=== PATIENT | female | born 1990 | race Caucasian/White ===

== ENCOUNTER 2016-09-13 11:53 | Emergency (ER) | payer OTHER ==
[~2016-09-13] VITALS: Ht 160 cm; Wt 63.5 kg
[2016-09-13] MEDS ORDERED: IRON TABLETS325 MG PO (12:12)
[2016-09-13] MEDS ORDERED: ESCITALOPRAM20 MG NG (12:13)
[2016-09-13] MEDS ORDERED: OMEPRAZOLE20 MG PO (12:53)
--- NOTE | 2016-09-13 12:55 | [facility]gent Treatment Center Report ---
History of Present Issue Date/Time Seen by Provider 09/13/16 1230 Visit Reason Pt arrived:Walked Presenting Problem:PT STATES HAS BEEN HAVING PAIN IN EPIGASTRIC AREA WHEN SWALLOWING X2 DAYS DENIES PAIN AT THIS TIME. DENIES DIFFICULTY SWALLOWING OR VOMITTING JUST PAIN. Location if Accident: Onset of symptoms date/time:09/11/16/ or onset unknown for:MEDICAL HX UNKNOWN Have you (or family members/close friends) recently traveled outside the [facility]? N If Yes, where/when: Have you had exposure to infectious disease within the past month? TB? Other? Specify: c/o throat/chest pain and feeling like everything is getting stuck mid chest. Started Saturday, 2 days ago. nearly constant but fluctuates. 3/10 at rest but 7/ 10 after eating or drinking. Described as burning, "like being on fire". Denies fever. No nausea, abdominal pain, vomiting. "Everything goes down". No improvement despite cough drops, gargling warm salt water, drinking warm fluids. Worse after eating, drinking and when laying down at night. Source patient Exam Limitations no limitations ALLERGIES Coded Allergies: sulfamethoxazole (From BACTRIM) (Intermediate, 09/13/16) trimethoprim (From BACTRIM) (Intermediate, 09/13/16) Home Medications Reported Medications Ferrous Sulfate (Iron Tablet) 325 MG PO DAILY Escitalopram Oxalate 20 MG NG DAILY #30 History Medical History General CAD? No Angina: No PA: No Hypertension? No CHF? No DVT? No PE? No COPD? No Asthma? No Anemia? No GERD? No (denies every having acid reflu) Gastric ulcers? No GI Bleed? No Hernia? No Thyroid Problems? No Hypothyroidism? No CVA? No Seizures? No Diabetes? No Renal Insuffiency? No UTI? No Stones? No BPH? No GB Disease: No Nephritic Syndrome? No Asplenia? No Hepatitis? No Sickle Cell Disease? No Arthritis? No Migraines? Yes Cataracts? No Glaucoma? No MRSA? No HIV? No Depression? 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 Respiratory denies cough, denies shortness of breath Cardiovascular denies chest pain, denies palpitations Gastrointestinal see HPI Musculoskeletal denies joint pain, denies muscle pain Physical Exam Vital Signs Vital Signs Date Time Temp Pulse Resp B/P Pulse O2 O2 Flow FiO2 Ox Delivery Rate 09/13 1259 97.8 73 18 120/59 99 09/13 1211 97.8 73 18 120/59 99 09/13 1155 97.8 73 18 120/59 99 General Appearance normal appearance, no apparent distress Ear, Nose, Throat normal ENT inspection Neck non-tender, supple, full range of motion, no thyromegaly Respiratory Status No: respiratory distress, non tender chest. Lung Sounds anterior: normal breath sounds. posterior: normal breath sounds. bilateral: normal breath sounds. Cardiovascular regular rate/rhythm, no murmur Gastrointestinal normal bowel sounds, non tender, soft Neurologic alert Skin warm/dry Lymphatic no adenopathy (cervical) Medical Decision Making LABS/Meds/Orders Pt receiving controlled substance in ED? No Departure Departure Time of Disposition 1247 Disposition DC Home or Self Care(routine) Clinical Impression Primary Impression: Acid reflux Qualifiers: Esophagitis presence: esophagitis presence not specified Qualified Code: K21.9 - Gastro-esophageal reflux disease without esophagitis Condition STABLE Patient Instructions DI for Gastroesophageal Reflux Disease (GERD), Omeprazole Additional Instructions Read instructions. Avoid eating 2 hours before laying down. FU immediately for new or worsening symptoms, especially vomiting. FU w/ PCP, Dr. Schmidt in [place], if no noticeable improvement w/ diet and behavior changes or in 10-14 days. Discharge Counseling Counseled pt/family regarding diagnosis, test results, medications/RX, home care, follow up needs Prescriptions Current Visit Scripts Omeprazole (Omeprazole 20MG) 20 MG PO DAILY #30 CAP at 1320
[2016-09-13 12:59] VITALS: BP 120/59
== END 2016-09-13 13:00 | disposition home or self-care (01) ==
LOC: ER 11:53 → UTC 11:53
DX: K21.9 Gastro-esophageal reflux disease without esophagitis (principal)